=== PATIENT | male | born 1965 | race Caucasian/White ===

== ENCOUNTER → 2017-02-18 | Outpatient (CLI) | payer BC ==
[~2017-02-18] MED LIST: LORTAB 5/500 501 TAB PO; NO HOME MEDICATIONS
== END ==
LOC: COL.RAD 10:07
DX: M25.461 Effusion, right knee (principal); M71.21 Synovial cyst of popliteal space [Baker], right knee

== ENCOUNTER → 2018-12-29 | Outpatient (CLI) | payer BC | LOC: COL.VAS 10:07 | DX: M79.89 Other specified soft tissue disorders (principal) ==

== ENCOUNTER → 2019-01-07 | Outpatient (CLI) | payer BC | LOC: COL.VAS 13:13 | DX: M79.605 Pain in left leg (principal); Z98.890 Other specified postprocedural states ==

== ENCOUNTER 2019-11-15 12:37 | Emergency (ER) | payer BC ==
[~2019-11-15] VITALS: Ht 177.8 cm; Wt 136.4 kg
[2019-11-15 13:00] VITALS: BP 127/83; TEMP 98.3
[2019-11-15] MEDS ORDERED: OMNICEF 300MG300 MG PO (16:10)
[2019-11-15 16:22] LABS: ALANINE AMINOTRANSFERASE 149 U/L (21-72); ALBUMIN 4.9 gm/dL (3.5-5.0); ALKALINE PHOSPHATASE 101 U/L (50-136); ANION GAP 12 mmol/L (7-16); AST,SGOT 112 U/L (15-37); BILIRUBIN,TOTAL 0.9 mg/dL (0.0-1.0); BLOOD UREA NITROGEN 22 mg/dL (9-20); CALCIUM 10.1 mg/dL (8.4-10.2); CARBON DIOXIDE 29 mmol/L (22-30); CHLORIDE 103 mmol/L (98-107); CREATININE, serum 1.11 (0.66-1.25); GLUCOSE 83 mg/dL (74-106); SODIUM 144 mmol/L (137-145); TOTAL PROTEIN 8.8 gm/dL (6.4-8.2)
[2019-11-15 16:23] LABS: C-REACTIVE PROTEIN < 0.5 mg/dL (0.0-0.9)
[2019-11-15 16:31] LABS: BASO # 0.1 (0.0-0.2); BASO % 0.6 % (0.0-2.0); EOS # 0.3 (0.0-0.7); GRAN # 4.5 (1.4-6.5); GRAN % 56.1 % (42.2-75.2); HEMATOCRIT 50.9 % (42.0-52.0); HEMOGLOBIN 16.7 g/dl (13.5-18.0); LYMPH # 2.6 (1.2-3.4); LYMPH % 32.2 % (20.0-51.0); MEAN CELL VOLUME 92 fl (80.0-100.0); MEAN CORPUSCULAR HEMOGLOBIN 30 pg (27.0-31.0); MEAN CORPUSCULAR HGB CONC 33 g/dl (33.0-37.0); MEAN PLATELET VOLUME 12.2 fl (7.4-10.4); MONO # 0.5 (0.1-0.6); MONO % 6.8 % (1.7-9.3); PLATELET COUNT 227 K/mm3 (130-400); RED BLOOD COUNT 5.55 M/mm3 (4.20-5.60); REDCELL DISTRIBUTION WIDTH-CV 13.1 % (11.5-14.5)
[2019-11-15 16:32] VITALS: PULSE 72
[2019-11-15 17:25] LABS: ERYTHROCYTE SEDIMENTATION RATE 1 mm/hr (0-30)
== END 2019-11-15 16:32 | disposition home or self-care (01) ==
LOC: COL.ER 12:37
PROVIDERS: Emergency Medicine
DX: J32.9 Chronic sinusitis, unspecified (principal); R20.2 Paresthesia of skin; I10 Essential (primary) hypertension; E78.5 Hyperlipidemia, unspecified

== ENCOUNTER 2023-12-13 14:46 | Inpatient (IN) | payer BC ==
[~2023-12-13] VITALS: Ht 177.8 cm; Wt 128.3 kg
[~2023-12-13 14:46] MED LIST changes: +OMNICEF 300MG300 MG PO
[2023-12-14] MEDS ORDERED: LOPRESSOR 225 MG/TAB PO (09:25)
[2023-12-14] MEDS ORDERED: PRINIVIL10 MG PO (09:26)
[2023-12-14] MEDS ORDERED: PAXIL 20MG20 MG PO (09:27)
[2023-12-14] MEDS ORDERED: ROXICODONE 55 MG/TAB PO (09:27)
[2023-12-14] MEDS ORDERED: FORFIVO XL450 MG PO (09:27)
[2023-12-14] MEDS ORDERED: MOBIC15 MG PO (09:28)
[2023-12-14] MEDS ORDERED: LIPITOR 10MG10 MG PO (09:28)
[2023-12-14] MEDS ORDERED: ZYLOPRIM 100MG100 MG PO (09:28)
[2023-12-14] MEDS ORDERED: MULTI VITAMINS1 TAB PO (09:29)
[2023-12-14] MEDS ORDERED: CALCIUM 600600 MG PO (09:30)
[2023-12-14] MEDS ORDERED: NATURAL FISH1200 MG PO (09:30)
[2023-12-14] MEDS ORDERED: ASPIRIN 32325 MG/TAB PO (09:31)
[2023-12-14] MEDS ORDERED: MAGNESIUM250 M1 PO (09:31)
[2023-12-14] MEDS ORDERED: COLACE 100100 MG/CAP PO (09:31)
[2023-12-14] MEDS ORDERED: PREDNISONE 5MG5 MG PO (09:32)
[2023-12-14] MEDS ORDERED: DURICEF 500MG500 MG PO (09:34)
[2023-12-14] MEDS ORDERED: TYLENOL 500MG500 MG PO (09:34)
[2023-12-14] MEDS ORDERED: MIRALAX PA17 GM/Dose PO (09:34)
[2023-12-14] MEDS ORDERED: Docusate Sodium 100 MG CAP PO PRN (11:45)
[2023-12-14] MEDS ORDERED: Acetaminophen 325 MG TAB PO PRN (11:45)
[2023-12-14] MEDS ORDERED: Naloxone 0.4 MG/ML VIAL IV PRN (11:45)
[2023-12-14] MEDS ORDERED: Polyethylene Glycol 3350 17 GM PDS PO PRN (11:45)
[2023-12-14] MEDS ORDERED: Sennosides/Docusate 8.6-50 MG TAB PO PRN (11:45)
[2023-12-14 11:59] VITALS: BP 117/65; PULSE 68; TEMP 98.6
--- NOTE | 2023-12-14 12:18 | NUR ---
New pt arrived from [facility] via stretcher. Pt accompanied by transportation staff. Pt is a/o x 4. Reports pain level of 6/10. Bilateral knee braces on. Pt has bilateral knee incision w/ dermabond & mepilex that are CDI. Pt wearing knee braces to both knees. Skin is otherwise intact. Pt is sending his wallet & medications home w/ his . CPAP & cryomachine at the bedside. Pt wears glasses. Hearing WNL. Orientation provided to room/unit. Pt had no further questions. Call light in reach. Bed alarm is on.
--- NOTE | 2023-12-14 12:20 | NUR ---
EMAR requested from [facility].
[2023-12-14] MEDS ORDERED: Polyethylene Glycol 3350 17 GM PDS PO SCH (13:02)
[2023-12-14] MEDS ORDERED: oxyCODONE 5 MG TAB PO PRN (13:15)
[2023-12-14 13:30] VITALS: BP_SYST 117
[2023-12-14] MEDS ORDERED: Acetaminophen 500 MG TAB PO SCH (14:00)
--- NOTE | 2023-12-14 16:53 | NUR ---
wire web worker met with patient to welcome patient to IPR unit and complete care assessment. Patient lives in [place] with his , Delphine, P# [phone] or [phone]. PCP is Dr. Culver, [facility] in [place]. No issues affording medications. Insurance is [employer]. Patient does not know if he has a DPOA-HC. DME is a CPAP. Patient reports to be independent with ADLS prior to hospitalization. Patient has a form of transportation for appointments. No stairs in his home. SW explained IPR services that she would continue to follow for discharge planning. Patient would like to return home at time of discharge. Discharge plan: Home
[2023-12-14 17:30] VITALS: BP 122/71; PULSE 75; TEMP 98.6
[2023-12-14 18:02] VITALS: BP_SYST 117
[2023-12-14 19:00] VITALS: BP_SYST 122
--- NOTE | 2023-12-14 19:00 | NUR ---
Received change of shift report from day shift nurse. Patient up in chair, up to bathroom x1 asst with reported stiffness to griffin knees and requested and given pain meds, see MAR. On room air, denies chest pain/SOA at this time. Exit alarm on when up in chair with call light in reach.
[2023-12-14] MEDS ORDERED: Metoprolol Tartrate 25 MG TAB PO SCH (21:00)
[2023-12-14] MEDS ORDERED: Cephalexin 500 MG CAP PO SCH (21:00)
[2023-12-14] MEDS ORDERED: Docusate Sodium 100 MG CAP PO SCH (21:00)
[2023-12-14] MEDS ORDERED: Atorvastatin 10 MG TAB PO SCH (21:00)
[2023-12-14] MEDS ORDERED: Aspirin 325 MG TAB PO SCH (21:00)
--- NOTE | 2023-12-14 23:45 | NUR ---
PATIENT REQUESTED AND GIVEN PAIN MEDS WHEN NEXT AVAILABLE PER PATIENT'S PREVIOUSLY REQUEST WHEN HS MEDS GIVEN. SEE MAR FOR MEDS GIVEN. PATIENT RESTING WITH CPAP ON, DENIES ANY NEEDS OR OTHER CONCERNS AT THIS TIME. EXIT ALARM ON AND CALL LIGHT IN REACH.
--- NOTE | 2023-12-15 00:40 | NUR ---
PATIENT RESTING IN BED WITH EYES CLOSED, CPAP ON PLACED BY PATIENT. BREATHING EVEN AND NONLABORED, DOES NOT WAKE DURING NURSING ROUNDS. EXIT ALARM ON, CALL LIGHT IN REACH.
[2023-12-15 05:56] VITALS: BP 100/67; PULSE 64; TEMP 98
--- NOTE | 2023-12-15 06:24 | NUR ---
REQUESTED AND GIVEN PAIN MEDS FOR TALAT KNEE STIFFNESS AND DISCOMFORT, SEE MAR.
--- NOTE | 2023-12-15 06:53 | NUR ---
CHANGE OF SHIFT REPORT GIVEN TO DAY SHIFT NURSEALEKSANDRA.
[2023-12-15 07:00] VITALS: BP_SYST 100
--- NOTE | 2023-12-15 07:01 | NUR ---
Shift report received from night RN. No events reported overnight. Pt awake & lying supine in bed after ambulating to toilet. Pt denies the need for pain medication at this time. Call light in reach. Bed alarm on.
[2023-12-15 08:35] VITALS: BP 115/67
--- NOTE | 2023-12-15 08:50 | NUR ---
Pt off unit w/ PT.
[2023-12-15] MEDS ORDERED: PARoxetine HCL 10 MG TABLET PO SCH (09:00)
[2023-12-15] MEDS ORDERED: Magnesium Gluconate 500 MG TAB PO SCH (09:00)
[2023-12-15] MEDS ORDERED: Allopurinol 100 MG TAB PO SCH (09:00)
[2023-12-15] MEDS ORDERED: Meloxicam 7.5 MG TAB PO SCH (09:00)
[2023-12-15] MEDS ORDERED: buPROPion XL (24-HR) 150 MG TAB PO SCH (09:00)
[2023-12-15] MEDS ORDERED: Calcium Carbonate 500 MG TAB PO SCH (09:00)
[2023-12-15] MEDS ORDERED: Multivitamin TAB PO SCH (09:00)
[2023-12-15] MEDS ORDERED: Omega-3 Fatty Acid Esters (OTC) 1,000 MG CAP PO SCH (09:00)
--- NOTE | 2023-12-15 12:37 | NUR ---
Pt sitting up in recliner waiting for to arrive w/ his lunch. Pt reporting mild bilat knee pain. Reminded pt that he has pain medication available if needed. Ice pads placed inside bilat knee braces. Pt denies other needs. Call light in reach. Chair alarm on.
--- NOTE | 2023-12-15 15:57 | NUR ---
Min asst provided for pt to stand from recliner to FWW. SBA to ambulate to the bathroom. Pt has been watching football w/ cryocuff on bilateral knees for the last 20 minutes.
[2023-12-15 17:10] VITALS: BP 104/55; PULSE 75; TEMP 98.2
--- NOTE | 2023-12-15 18:26 | NUR ---
Pt sitting up in bed watching tv. Cryocuff offered & declined by pt at this time. Other needs denied. Call light in reach. Bed alarm on.
[2023-12-15 19:17] VITALS: BP_SYST 104
--- NOTE | 2023-12-15 19:17 | NUR ---
RECEIVED CHANGE OF SHIFT REPORT FROM DAY SHIFT NURSE. PATIENT RESTING IN BED, TALKING ON PERSONAL CELL PHONE. CALL LIGHT IN REACH. NO NEEDS REPORTED AT THIS TIME.
[2023-12-15 22:02] VITALS: BP 112/72; PULSE 74
--- NOTE | 2023-12-15 22:29 | NUR ---
INFORMED ONCALL HOSP PROVIDER OF SBP 112 AND EARLIER SBP OF 100, OKAY GIVE TO METOPROLOL BUT TO HOLD METOPROLOL IF SBP IS <100.
--- NOTE | 2023-12-16 01:43 | NUR ---
Patient resting in bed, eyes closed, breathing even and nonlabored. Does not wake during nursing rounds.
[2023-12-16 05:30] VITALS: BP 95/53; PULSE 69; TEMP 98.1
[2023-12-16 07:00] VITALS: BP_SYST 95
--- NOTE | 2023-12-16 07:23 | NUR ---
CHANGE OF SHIFT REPORT GIVEN TO DAY SHIFT NURSEKAMERON.
[2023-12-16 07:27] LABS: BASO % 0.4 % (0.0-2.0); EOS # 0.3 K/mm3 (0.0-0.7); EOS % 3.1 % (0.0-4.0); GRAN # 7.3 K/mm3 (1.4-6.5); GRAN % 66.8 % (42.2-75.2); HEMOGLOBIN 11.4 g/dl (13.5-18.0); LYMPH # 2.2 K/mm3 (1.2-3.4); LYMPH % 20.3 % (20.0-51.0); MEAN CELL VOLUME 89 fl (80.0-100.0); MEAN CORPUSCULAR HEMOGLOBIN 29 pg (27-31); MEAN CORPUSCULAR HGB CONC 33 g/dl (33.0-37.0); MEAN PLATELET VOLUME 10.7 fl (7.4-10.4); MONO % 8.8 % (1.7-9.3); PLATELET COUNT 280 K/mm3 (130-400); RED BLOOD COUNT 3.91 M/mm3 (4.20-5.60); REDCELL DISTRIBUTION WIDTH-CV 13.5 % (11.5-14.5)
[2023-12-16 07:32] LABS: HEMATOCRIT 34.8 % (42.0-52.0)
--- NOTE | 2023-12-16 07:35 | NUR ---
RECIEVED REPORT FROM DONNA DIAMOND.
[2023-12-16 07:44] LABS: CALCIUM 8.7 mg/dL (8.4-10.2); CREATININE, serum 0.93 mg/dL (0.72-1.25); POTASSIUM 4.1 mmol/L (3.5-4.5)
--- NOTE | 2023-12-16 10:32 | NUR ---
Initial visit; Patient thanked Resident Intern for looking in on him and seeing how he was doing. Patient from [place] town outside of [place] and has live there since he left [facility] [employer] at [facility]. Patient had both knees done and is in considerable pain from his exercises this morning but knows he will be glad he did both knees when he starts to recouperate. Resident Intern wished him well and God's blessings.
--- NOTE | 2023-12-16 11:01 | NUR ---
Has lack of transportation kept you from medical appts, meetings, work, or from getting things needed for daily living? NO How often do you feel lonely or isolated from those around you? RARELY Over the past 5 days, how much of the time has pain made it hard for you to sleep? RARELY OR NOT AT ALL Over the past 5 days, how often have you limited your participation in therapy due to pain? RARELY OR NOT AT ALL Over the past 5 days, how often have you limited your day-to-day activities because of pain? RARELY OR NOT AT ALL Have you had 2 or more falls in the past year or any fall with an injury? NO Did you have major surgery during the 100 days prior to admission? YES
--- NOTE | 2023-12-16 11:25 | NUR ---
PT ALERT AND ORIENTED X4 LAYING IN BED THIS MORNING SAYS HE GOT SLIGHT PAIN RELIEF FROM PAIN MEDS. ASKING TO GET UP AND GET DRESSED, WAS ASSISTED TO RECLINER WITH ONE PERSON ASSIST AND FWW. ATE BREAKFAST INDEPENDENTLY. PORTABLE CRYOCUFF TO BILAT KNEES. HAD A SHOWER TODAY WITH PT, TOLERATED WELL. SHIFT ASSESSMENT COMPLETE MEDICATED PER EMR. DENIES FURTHER NEEDS AT THIS TIME. CALL LIGHT WITHIN REACH, BED ALARM SET.
[2023-12-16 17:27] VITALS: BP 115/71; PULSE 70; TEMP 98.9
--- NOTE | 2023-12-16 17:32 | NUR ---
general production worker met with patient to check in. Patient is doing well and does not have any questions or concerns at this time. SW will continue to follow.
[2023-12-16 19:00] VITALS: BP_SYST 115
--- NOTE | 2023-12-16 20:00 | NUR ---
PATIENT WALKING WITH PCT AND GRADCHILDREN APPROXIMATELY 200 FT. GAIT STEADY BUT WEAK AND STIFF.
--- NOTE | 2023-12-16 21:00 | NUR ---
UPON SHIFT ASSESSMENT, HIRAM WAS UP IN BED WITH GRANDCHILDREN, DAUGHTER AND BEDSIDE. HE IS CHEERFUL AND AXO X4. DISTAL PULSES IN BLLE PALPABLE, BUT DIFFICULT TO FIND. EDMEMA NOTED ALSO IN BLLE. BOTH INSCISION SITES ARE CDI. VS ARE WNL, CALL LIGHT WITHIN REACH, BED ALARM ON. C/O OF 4/10 PAIN AND "GETTING THERE". WILL REASSESS AND ADMINISTER PRN PAIN MEDS.
--- NOTE | 2023-12-16 22:30 | NUR ---
PATIENT C/O 8/10 BILATERAL KNEE PAIN. PRN ROXYCODONE 10 MG GIVEN.
[2023-12-17 06:08] VITALS: BP 105/65; PULSE 70; TEMP 97.5
[2023-12-17 07:00] VITALS: BP_SYST 105
--- NOTE | 2023-12-17 13:00 | NUR ---
Admission QIM scores were reviewed by the team. Code of 6 chosen for eating was determined by team discussion to be the most usual performance before interventions for this patient during the assessment period. Code of 3 chosen for sit to stand was determined by team discussion to be the most usual performance for this patient during the discharge assessment period.--Veronica Valencia,
[2023-12-17 17:23] VITALS: BP 103/68; PULSE 81; TEMP 98.3
[2023-12-17 19:00] VITALS: BP_SYST 103
--- NOTE | 2023-12-17 20:26 | NUR ---
PATIENT AWAKE AND ALERT, SITTING UP IN RECLINER. DRESSING TO BILAT KNEES CDI. CALL LIGHT WTIHIN REACH. PATIENT DENIES ANY NEEDS OR COMPLAINTS AT THIS TIME. ASSESS COM.
[2023-12-18 05:46] VITALS: BP 113/71; PULSE 74; TEMP 98
[2023-12-18 07:19] VITALS: BP_SYST 113
--- NOTE | 2023-12-18 07:19 | NUR ---
Shift report received from night RN. No events reported overnight. Pt awake & lying supine in bed. Denies the need for pain medications. Call light in reach. Fall precautions in place.
--- NOTE | 2023-12-18 07:56 | NUR ---
Pt sitting up in bed after eating 100% of breakfast independently. Pt reporting bilat knee pain at 5/10 & would like pain medication prior to starting PT this morning. Oxycodone given per PRN order. Other needs denied. Call light in reach. Fall precautions in place.
--- NOTE | 2023-12-18 08:59 | NUR ---
Pt off unit w/ PT
--- NOTE | 2023-12-18 09:20 | NUR ---
Pt resting supine in bed after wokring w/ PT. Cryocuff applied to both knees at pt's request. at the bedside. Pt denies other needs. Call light in reach. Bed alarm on.
[2023-12-18] MEDS ORDERED: oxyCODONE 5 MG TAB PO SCH (12:45)
--- NOTE | 2023-12-18 13:09 | NUR ---
Pt off unit w/ OT. Oxycodone given as scheduled
--- NOTE | 2023-12-18 14:06 | NUR ---
Pt back in room after ambulating off unit w/ PT. Pt reporting bilat knee pain 06/27. Scheduled Tylenol given. Pt position supine in bed. Bilat knee cryo machine applied at pt's request. Other needs denied. Call light in reach. Bed alarm on.
[2023-12-18 17:15] VITALS: BP 101/74; PULSE 89; TEMP 98.4
--- NOTE | 2023-12-18 17:45 | NUR ---
squirrel worker attended the team conference to discuss the patient's progress and potential discharge. Potential discharge 12/24 with outpatient PT ABHINAV met with the patient and his to discuss the team conference. Patient and would like to have a family meeting on Saturday at 1 pm. Patient would like outpatient PT at [facility]. ABHINAV notified Veronica ESCOBEDO director of the family meeting on Saturday at 1 pm. Abhinav met with patient, reviewed and provided a copy of the team conference notes. Discharge plan: Home with outpatient PT
--- NOTE | 2023-12-18 18:58 | NUR ---
RECEIVED CHANGE OF SHIFT REPORT FROM DAY SHIFT NURSE.
[2023-12-18 19:00] VITALS: BP_SYST 101
--- NOTE | 2023-12-18 19:41 | NUR ---
PATIENT UP IN CHAIR, REQUESTED AND GIVEN PAIN MEDS, SEE MAR. EXIT ALARM ON WHEN UP IN CHAIR, CALL LIGHT IN REACH. NO OTHER NEEDS REPORTED AT THIS TIME.
[2023-12-19 05:45] VITALS: BP 106/61; PULSE 62; TEMP 97.4
--- NOTE | 2023-12-19 06:30 | NUR ---
appears to be sleeping, in bed with lights off, eyes closed, resp quiet and easy, CPAP on, bedside shift report received from DONNA Holcomb
[2023-12-19 06:51] VITALS: BP_SYST 106
--- NOTE | 2023-12-19 06:59 | NUR ---
CHANGE OF SHIFT REPORT GIVEN TO DAY SHIFT NURSE
--- NOTE | 2023-12-19 07:30 | NUR ---
was up to bathroom and now sitting up on side of bed and had breakfast, full assessment completed, see interventions for further info, states pain is now 01/25
--- NOTE | 2023-12-19 08:15 | NUR ---
physical therapy in to work with patient
--- NOTE | 2023-12-19 09:18 | NUR ---
returned from physical therapy and resting in bed, cryocuff on to bilateral knees
--- NOTE | 2023-12-19 10:38 | NUR ---
out of room for group therapy
--- NOTE | 2023-12-19 11:45 | NUR ---
sitting up in recliner having lunch, given scheduled roxicodone for pain
--- NOTE | 2023-12-19 13:08 | NUR ---
occupational therapy in to work with obed
--- NOTE | 2023-12-19 14:35 | NUR ---
resting in bed, medicated with scheduled tylenol
--- NOTE | 2023-12-19 16:28 | NUR ---
bedside shift report given to DIMAS Andrade
--- NOTE | 2023-12-19 17:51 | NUR ---
REPORT RECEIVED BY FELIZ THOMPSON. PATIENT RESTING IN BED, AT BEDSIDE. PATIENT DENIES NEEDS OR PAIN AT THIS TIME. WILL MONITOR.
[2023-12-19 18:00] VITALS: BP 138/80; PULSE 87; TEMP 99
[2023-12-19 21:00] VITALS: TEMP 98.8
--- NOTE | 2023-12-19 21:00 | NUR ---
PT SITTING UP IN RECLINER. A&OX4. SL GRUMPY AFFECT. NOT READY TO GO TO BED YET. NO NEEDS AT THIS TIME.
--- NOTE | 2023-12-19 22:30 | NUR ---
CPAP IN PLACE.
[2023-12-20 05:59] VITALS: BP 128/79; PULSE 67; TEMP 97.7
[2023-12-20 07:00] VITALS: BP_SYST 128
--- NOTE | 2023-12-20 08:00 | NUR ---
Pt. sitting up in bed. PT. with pt. at this time. Shift assessment complete. Pt. is A&OX3. Dressings to Bilat. knees CDI. Pt. reports pain at an 8 on pain scale, will give meds per orders. Pt. denies further needs, call light within reach.
--- NOTE | 2023-12-20 13:16 | NUR ---
Family meeting conducted w/ pt & . Also present was the MD, PT, OT, & business area director/SW. The team talked about how pt has progressed from a functional standpoint. Pt/Family stated they understood. Informed them of a d/c for 12/24/23, which they were fine w/. They were all fine w/ the plan of going home w/ OP PT. is concerned if pt can be home alone, which the team informed he would be fine.
[2023-12-20 18:00] VITALS: BP 106/70; PULSE 82; TEMP 98.2
[2023-12-20 18:30] VITALS: BP_SYST 106
--- NOTE | 2023-12-20 21:00 | NUR ---
PT RESTING IN BED. A&O X4. SBA TO BR W/ WALKER. STEADY GAIT. SEE MAR FOR OXYCODONE GIVEN. CPAP SET UP READY TO USE. REFUSES SCD'SAND CRYOCUFF. CALL LIGHT IN REACH. BED ALARM SET.
[2023-12-21 05:44] VITALS: BP 108/69; PULSE 72; TEMP 97.8
[2023-12-21 07:15] VITALS: BP_SYST 108
--- NOTE | 2023-12-21 07:16 | NUR ---
Bedside report received from DONNA Kirk. Pt is currently sleeping with no complaints. Call light within reach and fall precautions in place.
[2023-12-21 17:14] VITALS: BP 153/87; PULSE 85; TEMP 98
[2023-12-21 18:30] VITALS: BP_SYST 153
--- NOTE | 2023-12-21 21:00 | NUR ---
PT RESTING IN BED. HERE EARLIER. VERY SUPPORTIVE. PT DENIES PAIN AT THIS TIME. NO NEEDS. CALL LIGHTIN REACH. BED ALARM SET.
[2023-12-22 05:31] VITALS: BP 131/82; PULSE 77; TEMP 97.7
--- NOTE | 2023-12-22 06:40 | NUR ---
PT USED CPAP THROUGH THE NIGHT. REQUESTED TO WAIT AND NOT TAKE THE OXYCODONE UNTIL LATER. REPORTED THIS TO DAY NURSE.
[2023-12-22 07:04] VITALS: BP_SYST 131
--- NOTE | 2023-12-22 07:05 | NUR ---
Bedside report received from DONNA Kirk.
--- NOTE | 2023-12-22 15:00 | NUR ---
Recently received report from DIMAS Lawrence. Pt doing well, sitting up in the chair. DRSG to bilateral knees are CDI. Spouse at bedside. Pt denies any needs, reports pain is tolerable at this time. Call light within reach, will continue to monitor
[2023-12-22 17:42] VITALS: BP 122/76; PULSE 65; TEMP 98.4
[2023-12-22 19:45] VITALS: BP_SYST 122
--- NOTE | 2023-12-22 19:45 | NUR ---
RECIEVED REPORT FROM DONNA ENGEL.
--- NOTE | 2023-12-23 01:37 | NUR ---
PT ALERT AND ORIENTED, AT START OF SHIFT WAS BEING VISITIED BY HIS . STATES HE IS ABLE TO PUT ON CPAP ON HIS OWN AND HAD BEEN WEARING IT FOR 20 YEARS. SHIFT ASSESSMENT COMPLETE, MEDICATED PER EMAR. PAIN RATED 4/10 AND WANTS TO HAVE PAIN MEDS BEFORE THETAPY TOMORROW. REFUSED TO USE CRYOCUFF AND SCD'S. VSS, DENIES NEED FURTHER AT THSI TIME. CALL LIGHT WITHIN REACH.
[2023-12-23 06:00] VITALS: BP 134/75; PULSE 72; TEMP 98.5
[2023-12-23 07:00] VITALS: BP_SYST 134
--- NOTE | 2023-12-23 08:00 | NUR ---
pt doing well this morning. He reports having a good night. Scheduled pain medication was given recently. Pt did eat all of his breakfast, no needs or complaints at this time. DRSG to bilateral knees CDI
--- NOTE | 2023-12-23 13:33 | NUR ---
Will lack of transportation kept you from medical appts, meetings, work, or from getting things needed for daily living? NO How often do you feel lonely or isolated from those around you? RARELY Over the past 5 days, how much of the time has pain made it hard for you to sleep? RARELY/NOT AT ALL Over the past 5 days, how often have you limited your participation in therapy due to pain? RARELY/NOT AT ALL Over the past 5 days, how often have you limited your day-to-day activities because of pain? RARELY/NOT AT ALL
--- NOTE | 2023-12-23 14:28 | NUR ---
The Interdisciplinary team discussed making the patient Modified Independent in his room during Team Huddle. His current Alejandra Fall Score is moderate at 25 & Tinetti score was low at 24. He is currently using a r/walker for mobility & self care & demonstrates good safety. The team feels he is capable of being Modified Independent in his room at this time as he is aware of his deficits/limitations & cognitively able to problem solve his situations.--Veronica Valencia, PD
--- NOTE | 2023-12-23 14:46 | NUR ---
Pt now getting up independently in the room. Pt aware to notify nursing if he needs assistance
--- NOTE | 2023-12-23 17:02 | NUR ---
general distillery worker met with patient to check in. Patient reports he is ready to go tomorrow for discharge with outpatient pt at [facility]. No concerns or questions at this time. SW will send discharge orders for OP PT tomorrow.
[2023-12-23 18:00] VITALS: BP 119/69; PULSE 82; TEMP 98.3
[2023-12-23 19:34] VITALS: BP_SYST 119
--- NOTE | 2023-12-23 19:35 | NUR ---
RECEIVED CHANGE OF SHIFT REPORT FROM DAY SHIFT NURSE. PATIENT UP IN CHAIR, UP IN ROOM INDEPENDENTLY WITH NO REPORTED CONCERNS OR COMPLAINTS AT THIS TIME.
--- NOTE | 2023-12-23 22:59 | NUR ---
SCD NOT ON PER PATIENT REQUEST
[2023-12-24 05:14] VITALS: BP 128/76; PULSE 76; TEMP 97.7
--- NOTE | 2023-12-24 06:51 | NUR ---
Change of shift report given to day shift nurseEloisa.
[2023-12-24 07:17] VITALS: BP_SYST 128
--- NOTE | 2023-12-24 07:17 | NUR ---
Shift report received from night RN. No events reported overnight. Pt sleeping supine w/ even & unlabored resps. Call light in reach. Bed alarm on.
[2023-12-24] MEDS ORDERED: TOPROL XL 25MG25 MG PO (08:55)
[2023-12-24] MEDS ORDERED: ASPIRIN 32325 MG/TAB PO (08:56)
[2023-12-24] MEDS ORDERED: PROTONIX 40MG T40 MG PO (09:03)
[2023-12-24] MEDS ORDERED: ROXICODONE 55 MG/TAB PO (09:04)
--- NOTE | 2023-12-24 11:35 | NUR ---
yard warehouse worker was notified patient is medically stable for discharge from [facility]. SW faxed discharge orders to [facility] on [address]. DIscharge plan: Home with OP PT
--- NOTE | 2023-12-24 12:19 | NUR ---
DC summary reviewed w/ the pt & his . Belongings were gathered by the pt & his . They had no further questions. Pt ambulated off unit w/ personal FWW to vehicle & was escorted by RN & SOFTWARE DEVELOPMENT LEADER.
== END 2023-12-24 12:21 | disposition home or self-care (01) | DRG 560 ==
PROVIDERS: Internal Medicine; ADMIT Physical Medicine & Rehabilitation Sports Medicine
DX: Z47.1 Aftercare following joint replacement surgery (principal); I47.10 Supraventricular tachycardia, unspecified; Z68.41 Body mass index [BMI] 40.0-44.9, adult; E66.01 Morbid (severe) obesity due to excess calories; R26.89 Other abnormalities of gait and mobility; D64.9 Anemia, unspecified; I95.9 Hypotension, unspecified; I10 Essential (primary) hypertension; F32.A Depression, unspecified; G47.33 Obstructive sleep apnea (adult) (pediatric); K21.9 Gastro-esophageal reflux disease without esophagitis; E78.5 Hyperlipidemia, unspecified; Z96.653 Presence of artificial knee joint, bilateral; Z79.899 Other long term (current) drug therapy; Z79.2 Long term (current) use of antibiotics; Z79.52 Long term (current) use of systemic steroids; Z79.82 Long term (current) use of aspirin; Z74.09 Other reduced mobility; Z79.891 Long term (current) use of opiate analgesic